=== PATIENT | female | born 1945 | race Asian ===

== ENCOUNTER 2022-06-08 12:50 | Inpatient (IN) | payer OTHER ==
[~2022-06-08] VITALS: Ht 152.4 cm; Wt 67.7 kg
--- NOTE | 2022-06-08 12:55 | NUR ---
Patient to ER bed 04 to gown for evaluation. Side rails up.
[2022-06-08 12:56] VITALS: BP_SYST 148
--- NOTE | 2022-06-08 13:00 | NUR ---
Pt brought by JOEL, Dillon&Ox4, pt presents to ER with syncopal episode at home, bump on the back of the head noted,denies taking blood thinners,pt was assisted to the bed, pt c/o headache 4/10, skin pink and warm, respirations even and unlabored, cap refill <3, will cont to monitor.
--- NOTE | 2022-06-08 13:11 | NUR ---
SPOKE WITH PT AND PTS DAUGHTER, PT STATES SHE GOT OUT OF BED AND BECAME DIZZY, FELL AND HIT TOP OF HEAD ON HARDWOOD FLOORS. +SYNCOPAL EPISODE. PT STATES THAT SHE THEN CALLED HER DAUGHTER WHO WAS IN ANOTHER ROOM, DAUGHTER THEN CALLED 911. PT IS ALERT AND ORIENTED X3, STATES SHE HAS NOT EATEN TODAY, DID NOT TAKE HER MEDS EITHER.
--- NOTE | 2022-06-08 13:15 | NUR ---
LAB AT BEDSIDE FOR BLOOD DRAW
[2022-06-08 13:29] LABS: BASOPHILS % (AUTO) 0.2 % (0.0-2.0); EOSINOPHILS # (AUTO) 0.3 K/uL (0.0-0.4); EOSINOPHILS % (AUTO) 5.8 % (0.0-4.0); HEMATOCRIT 40.1 % (36-48); HEMOGLOBIN 13.5 g/dL (12.0-16.0); LYMPHOCYTES # (AUTO) 1.1 K/uL (1.0-5.5); LYMPHOCYTES % (AUTO) 20.9 % (20.5-51.5); MEAN CORPUSCULAR HEMOGLOBIN 30 pg (27-31); MEAN CORPUSCULAR HGB CONC 34 % (32-36); MEAN CORPUSCULAR VOLUME 90 fL (79.0-98.0); MONOCYTES # (AUTO) 0.6 K/uL (0.0-1.0); MONOCYTES % (AUTO) 11.4 % (1.7-9.3); NEUTROPHILS # (AUTO) 3.2 K/uL (1.8-7.7); NEUTROPHILS % (AUTO) 61.7 % (40.0-70.0); PLATELET COUNT (AUTO) 301 K/uL (130-430); RED BLOOD CELL COUNT(AUTO) 4.45 MIL/uL (4.2-6.2); RED CELL DISTRIBUTION WIDTH 13.5 % (9.0-15.0); WHITE BLOOD COUNT (AUTO) 5.3 K/uL (4.8-10.8)
[2022-06-08 13:53] LABS: BILIRUBIN,URINE NEGATIVE (NEGATIVE); BLOOD, URINE NEGATIVE (NEGATIVE); CLARITY/URINE CLEAR (CLEAR); COLOR,URINE YELLOW (YELLOW); GLUCOSE,URINE TRACE (NEGATIVE); KETONES,URINE NEGATIVE (NEGATIVE); LEUKOCYTE ESTERASE ,URINE NEGATIVE (NEGATIVE); NITRITE, URINE NEGATIVE (NEGATIVE); PROTEIN URINE NEGATIVE (NEGATIVE); UROBILINOGEN,URINE 0.2 (0.2-1.0)
[2022-06-08 14:00] LABS: ANION GAP 10 (5-15); CHLORIDE 104 mmol/L (98-107); CREATININE 1.02 mg/dL (0.55-1.30); GLUCOSE 209 mg/dL (70-99); UREA NITROGEN, BLOOD 17 mg/dL (8-21)
[2022-06-08 14:08] LABS: ALANINE AMINOTRANSFERASE 24 U/L (12-78); ALBUMIN 3.2 g/dL (3.4-4.8); ASPARTATE AMINOTRANSFERASE 19 U/L (10-37); TOTAL BILIRUBIN 0.5 mg/dL (0.0-1.0)
[2022-06-08] MEDS ORDERED: METO50TA7 PO (14:27)
[2022-06-08] MEDS ORDERED: ROSU40TA PO (14:27)
[2022-06-08] MEDS ORDERED: ZETIA PO (14:27)
[2022-06-08] MEDS ORDERED: CALC-940 PO (14:27)
[2022-06-08] MEDS ORDERED: ASA81 PO (14:27)
[2022-06-08] MEDS ORDERED: ONDA-8 TL (14:27)
[2022-06-08] MEDS ORDERED: ALLERTEC PO (14:27)
[2022-06-08] MEDS ORDERED: ALLO100T PO (14:27)
[2022-06-08] MEDS ORDERED: LOSA50TA3 PO (14:27)
--- NOTE | 2022-06-08 14:27 | NUR ---
Medication reconciliation completed with information provided by FAMILY BROU[facility]HT IN. Any prior medication reconciliation on file was reviewed and corrected.
--- NOTE | 2022-06-08 15:10 | NUR ---
RESTING QUIETLY, NO CHANGES
--- NOTE | 2022-06-08 17:20 | NUR ---
PT AND FAMILY AWARE OF POSS ADMISSION. AWAITING ORDERS
--- NOTE | 2022-06-08 18:20 | NUR ---
Admit bed requested Patient will be admitted to care of . Admitted to TELE unit. Diagnosis [facility] Inpatient (Yes or No) Y Observation (Yes or No) N Orientation concerns or request close to nursing station (Yes or No) N Covid Status PENDING On vent or bipap N Isolation requirements N Needs a sitter N From Home (Yes or if No enter name of facility) Y Requires Dialysis (Yes or No) N Med Rec Completed (Yes of No) YES
--- NOTE | 2022-06-08 19:17 | NUR ---
REPORT GIVEN TO LIZETT, WILL ASSUME CARE
--- NOTE | 2022-06-08 20:22 | NUR ---
Patient will be admitted to care of Dr. Mohr. Admitted to tele unit. Will go to room 113. Belongings list completed. Complete and up to date summary report printed. SBAR report given at bedside to SILKE Meneses with opportunity for questions. (Assisting primary nurse. Gave report for SILKE Tena.)
[2022-06-08 21:26] VITALS: BP_SYST 124
[2022-06-08] MEDS ORDERED: ONDANSETRON HCL 4 MG/2 ML VIAL IM PRN (22:15)
[2022-06-08] MEDS: ACETAMINOPHEN 325 MG TABLET PO PRN (22:32)
[2022-06-09] VITALS (8 sets, daily range): BP systolic 124–188
--- NOTE | 2022-06-09 05:04 | NUR ---
CONSULTATION PAGED/CALLED Reason for Consultation: [facility] Person Who was Notified: VIA TEXT Consulting Physician: Director [employer] Specialty: CARDIO Ordering Physician:
--- NOTE | 2022-06-09 07:50 | NUR ---
Patient stable; eating breakfast at this time with no complaint of pain. Daughter, Melissa Jeff at bedside.
--- NOTE | 2022-06-09 07:55 | NUR ---
Paged Dr. Mohr regarding review of med rec. BP 188/97. Patient stable at this time.
--- NOTE | 2022-06-09 07:59 | NUR ---
MD AURELIO CAO FOR ELEVATED BP SPOKE WITH MELVIN AT THE EXCHANGE
--- NOTE | 2022-06-09 08:50 | NUR ---
Patient ambulated to bathroom with standby assist from daughter. Patient ambulated back to bed; stable at this time.
--- NOTE | 2022-06-09 08:50 | NUR ---
Second page to Dr. Mohr regarding med rec and elevated BP.
--- NOTE | 2022-06-09 09:47 | NUR ---
Patient ambulated with standby assist from daughter to bathroom and back to bed.
[2022-06-09] MEDS: ACETAMINOPHEN 325 MG TABLET PO PRN (10:10)
--- NOTE | 2022-06-09 10:10 | NUR ---
Still awaiting call back from Dr. Mohr or Dr. Stephen. Rechecked blood pressure: 133/92. Patient medicated for headache; stable with daughter at bedside.
--- NOTE | 2022-06-09 10:53 | NUR ---
Patient resting comfortably in bed with 2D echo in progress and Liane (tech) at bedside. Patient stable.
--- NOTE | 2022-06-09 15:30 | NUR ---
Patient resting in bed with Dr. Craft and daughter at bedside.
[2022-06-09] MEDS ORDERED: ONDANSETRON 4 MG ODT TAB TL PRN (16:00)
[2022-06-09] MEDS ORDERED: ALLERTEC PO SCH (16:00)
[2022-06-09] MEDS ORDERED: LOSARTAN POTASSIUM 50 MG TABLET (COZAAR) PO ONE (16:00)
[2022-06-09] MEDS ORDERED: CALCIUM CARBONATE 300 MG PO SCH (16:00)
[2022-06-09] MEDS ORDERED: METOPROLOL SUCCINATE 50 MG TAB.SR.24H (TOPROL XL) PO ONE (16:00)
[2022-06-09] MEDS ORDERED: ROSUVASTATIN CALCIUM 5 MG/TAB (CRESTOR) PO SCH (16:00)
[2022-06-09] MEDS ORDERED: ALLOPURINOL 100 MG TABLET (ZYLOPRIM) PO ONE (16:00)
[2022-06-09] MEDS ORDERED: ASPIRIN 81 MG TAB.CHEW PO ONE (16:00)
--- NOTE | 2022-06-09 16:05 | NUR ---
Orthostatic blood pressure: supine: 97.5, 72, 18, 159/93, 98% sittin.5, 76, 18, 160/93, 95% standin.5, 84, 19, 155/99, 94%
--- NOTE | 2022-06-09 16:15 | NUR ---
Scheduled medications given per order. Patient stable with daughter at bedside.
--- NOTE | 2022-06-09 16:23 | NUR ---
Patient ambulated to bathroom with walker assist and standby assist from daughter.
--- NOTE | 2022-06-09 18:45 | NUR ---
Patient eating dinner with daughter at bedside. Patient stable throughout shift.
--- NOTE | 2022-06-09 19:25 | NUR ---
CHANGE OF SHIFT: endorsed by day shift. EGD was not done today, will checke whymary kuo not done. no distress. safety precautions observed. call light within reach. Addendum: 06/09/22 at 2256 by Shante Mercado RN wrong pt.
--- NOTE | 2022-06-09 19:30 | NUR ---
CHANGE OF SHIFT; pt. admitted today secondary to a fall. DX Syncope. pt. daughter at bedside. instructed to use call ligth when getting out of bed. no complaints. call light within reach. bed alarm on..
--- NOTE | 2022-06-09 20:30 | NUR ---
NOTES: pt. awake,alert. IVF infusing via left arm. noted weakness on bilateral lower extrmities, left leg contracted and some discoloration. incontinent of urine, moni pad changed. sacral wound dressing intact. on diagnostic cardiac sonographer and shows sinus rhythm. repositioned and turn to sides. HOB slighty elevated, on room air. bed alarm . call light within reach. Addendum: 06/09/22 at 2246 by Shnate Mercado RN wrong pt. Addendum: 06/10/22 at 0310 by Shante Mercado RN wrong pt.
[2022-06-09] MEDS: ALLOPURINOL 100 MG TABLET (ZYLOPRIM) PO SCH (20:47)
[2022-06-09] MEDS: METOPROLOL SUCCINATE 50 MG TAB.SR.24H (TOPROL XL) PO SCH (20:47)
--- NOTE | 2022-06-09 20:50 | NUR ---
NOTES: due medications given, VS checked earlier. needs attended. bed alarm on.
--- NOTE | 2022-06-09 21:20 | NUR ---
NOTES: pt. assisted to the restroom with a walker and voided.
--- NOTE | 2022-06-09 21:30 | NUR ---
NOTES: found out from charge nurse.that EGD is schedule tomorrow. pt. fed with apple sauce and jello since he is hungry and tolerated well. needs attended. Addendum: 06/09/22 at 2246 by Shante Mercado RN wrong pt.
--- NOTE | 2022-06-09 22:30 | NUR ---
NOTES: pt. sleeping when checked. bed alarm on/
[2022-06-10] VITALS (7 sets, daily range): BP systolic 96–171
--- NOTE | 2022-06-10 00:10 | NUR ---
NOTES: pt. sleeping, no further complaints. fall risk precautions. call light at bedside./
--- NOTE | 2022-06-10 02:15 | NUR ---
NOTES: pt. awakened, ambulated to the restroom with walker. rechecked BP systolic @ 170. no chest pain. cardiac pattern unchanged.
--- NOTE | 2022-06-10 04:56 | NUR ---
NOTES: pt.awakenedand ambulated to the restroom with walker. no complaints manifested. bed alarm on.
[2022-06-10] MEDS ORDERED: hydrALAZINE HCL 20 MG/ML VIAL IVP PRN ×2 (06:00→10:00)
--- NOTE | 2022-06-10 06:00 | NUR ---
NOTES: called Dr. Stephen, language and literature division chair for Dr. Mohr for elevated SBP 170 HR 62 with order and noted. informed pt.
--- NOTE | 2022-06-10 06:54 | NUR ---
CLOSING NOTES; ambulated to the restroom with walker. will IV Hydralazine for SBP 170. back to bed. will endorse to incoming shift. for further care. call at bedside.
[2022-06-10] MEDS ORDERED: LOSARTAN POTASSIUM 50 MG TABLET (COZAAR) PO SCH (09:00)
[2022-06-10] MEDS ORDERED: ASPIRIN 81 MG TAB.CHEW PO SCH (09:00)
[2022-06-10] MEDS: ALLOPURINOL 100 MG TABLET (ZYLOPRIM) PO SCH (10:02)
[2022-06-10] MEDS ORDERED: CALCIUM CARBONATE 500 MG/ TAB.CHEW PO PRN (10:30)
--- NOTE | 2022-06-10 11:43 | NUR ---
Positive for MRSA of the nares. Patient made aware. MD notified . Patient's afebrile, no c/o pain or discomfort. Placed patient on contact isolation.
[2022-06-10] MEDS: METOPROLOL SUCCINATE 50 MG TAB.SR.24H (TOPROL XL) PO SCH (15:29)
[2022-06-10 15:42] LABS: ANION GAP 11 (5-15); CHLORIDE 103 mmol/L (98-107); CREATININE 1.54 mg/dL (0.55-1.30); GLUCOSE 129 mg/dL (70-99); UREA NITROGEN, BLOOD 25 mg/dL (8-21)
--- NOTE | 2022-06-10 18:59 | NUR ---
D/C Patient home via personal vehicle, picked up by daughter. Patient given medication reconciliation form and D/C instructions. Exit Care provided. Patient verbalized understanding. MD discussed with patient the results and treatment provided. Ambulatory with steady gait for discharge to home. Patient in stable condition, ID band removed. IV catheter removed, intact and dressing applied, no active bleeding. Patient educated on safety, fall precaution, and pain management. All belongings sent with patient. VSS. Denies any pain or discomfort.
[2022-06-10] MEDS ORDERED: ATORVASTATIN 20 MG TABLET PO SCH (21:00)
[2022-06-11] MEDS ORDERED: LORATADINE 10 MG TABLET PO SCH (09:00)
== END 2022-06-10 19:05 | disposition home or self-care (01) | DRG 304 ==
LOC: SED 12:50 → STU 20:16 → SMU 20:21 → STU 21:12
PROVIDERS: ADMIT Specialist; ATTEND Specialist
DX: I16.0 Hypertensive urgency (principal); N17.0 Acute kidney failure with tubular necrosis; I24.8 Other forms of acute ischemic heart disease; S09.90XA Unspecified injury of head, initial encounter; I10 Essential (primary) hypertension; E78.5 Hyperlipidemia, unspecified; W18.39XA Other fall on same level, initial encounter; Z20.822 Contact with and (suspected) exposure to COVID-19; E11.9 Type 2 diabetes mellitus without complications; Z90.710 Acquired absence of both cervix and uterus; Z79.82 Long term (current) use of aspirin; Z79.899 Other long term (current) drug therapy; Y93.89 Activity, other specified; Y92.89 Other specified places as the place of occurrence of the external cause; Y99.8 Other external cause status
CPT/HCPCS: 36415; 70450-TC; 71045; 72125-TC; 76376; 80048; 80053; 81003; 83880; 84484; 85025; 87081; 93005; 93306; 93880; 99285; G0378; J0360

== ENCOUNTER 2023-04-11 10:43 | Inpatient (IN) | payer OTHER, MEDICAID ==
[~2023-04-11] VITALS: Ht 152.4 cm; Wt 65.8 kg
[~2023-04-11 10:43] MED LIST: ALEN10TA25 PO; ALLERTEC PO; ALLO100T PO; ASA81 PO; CALC-940 PO; ICOS1CAP PO; LOSA-412 PO; MAGN400T10 PO; MONT-47 PO; NITSL SL; OMEP20CA15 PO; ONDA-8 TL; ROSU40TA PO; ZETIA PO
[2023-04-11 10:57] VITALS: BP_SYST 130; PULSE 90; RESP 18; TEMP 98.1; O2SAT 95
[2023-04-11 11:19] LABS: BASOPHILS # (AUTO) 0.1 K/uL (0.0-0.2); BASOPHILS % (AUTO) 1.2 % (0.0-2.0); EOSINOPHILS # (AUTO) 0.4 K/uL (0.0-0.4); EOSINOPHILS % (AUTO) 5.6 % (0.0-4.0); HEMATOCRIT 42.9 % (36-48); HEMOGLOBIN 14.1 g/dL (12.0-16.0); LYMPHOCYTES # (AUTO) 0.9 K/uL (1.0-5.5); LYMPHOCYTES % (AUTO) 14.4 % (20.5-51.5); MEAN CORPUSCULAR HEMOGLOBIN 30 pg (27-31); MEAN CORPUSCULAR HGB CONC 33 % (32-36); MEAN CORPUSCULAR VOLUME 91 fL (79.0-98.0); MONOCYTES # (AUTO) 0.7 K/uL (0.0-1.0); MONOCYTES % (AUTO) 10.3 % (1.7-9.3); NEUTROPHILS # (AUTO) 4.5 K/uL (1.8-7.7); NEUTROPHILS % (AUTO) 68.5 % (40.0-70.0); PLATELET COUNT (AUTO) 327 K/uL (130-430); RED BLOOD CELL COUNT(AUTO) 4.74 MIL/uL (4.2-6.2); RED CELL DISTRIBUTION WIDTH 13.5 % (9.0-15.0); WHITE BLOOD COUNT (AUTO) 6.6 K/uL (4.8-10.8)
[2023-04-11 11:24] LABS: ANION GAP 7 (5-15); CALCIUM 9.7 mg/dL (8.4-11.0); CARBON DIOXIDE 30 mmol/L (23-29); CHLORIDE 103 mmol/L (98-107); CREATININE 1.34 mg/dL (0.55-1.30); GLUCOSE 175 mg/dL (74-106); POTASSIUM 3.8 mmol/L (3.5-5.1); SODIUM SERUM 140 mmol/L (136-145); UREA NITROGEN, BLOOD 13 mg/dL (8-21)
[2023-04-11 11:42] LABS: ALANINE AMINOTRANSFERASE 31 U/L (12-78); ALBUMIN 3.7 g/dL (3.4-4.8); ASPARTATE AMINOTRANSFERASE 27 U/L (10-37); BILIRUBIN,DIRECT 0.2 mg/dL (0.0-0.3); TOTAL BILIRUBIN 0.7 mg/dL (0.0-1.0); TOTAL PROTEIN, SERUM 8.5 g/dL (6.4-8.3)
[2023-04-11] MEDS ORDERED: ASPIRIN 81 MG TABLET(ECOTRIN) PO ONE (12:00)
[2023-04-11] MEDS ORDERED: METO-540 PO (12:24)
[2023-04-11] MEDS ORDERED: EZET10TA PO (12:24)
[2023-04-11] MEDS ORDERED: MONT-47 PO (12:24)
[2023-04-11] MEDS ORDERED: NITROGLYCERIN 0.4 MG TAB.SUBL SL PRN (12:45)
[2023-04-11] MEDS ORDERED: IBUPROFEN 600 MG TABLET PO ONE (12:45)
[2023-04-11] MEDS ORDERED: ALLOPURINOL 100 MG TABLET (ZYLOPRIM) PO SCH (12:45)
[2023-04-11 13:19] LABS: CHOLESTEROL 115 mg/dL (<200); HDL CHOLESTEROL 55 mg/dL (>55); TRIGLYCERIDES 123 mg/dL (30-150)
[2023-04-11] MEDS ORDERED: ADENOSINE 6MG/2ML VIAL ONE ×3 (13:29→14:07)
[2023-04-11] MEDS ORDERED: ADENOSINE 6MG/2ML VIAL IVP ONE (13:45)
[2023-04-11] MEDS ORDERED: ATENOLOL 50 MG TABLET (TENORMIN) ONE (14:09)
[2023-04-11] MEDS ORDERED: AMIODARONE HCL 450 MG in D5W 241 ML IV SCH (14:15)
[2023-04-11] MEDS ORDERED: ATENOLOL 50 MG TABLET (TENORMIN) PO ONE (14:15)
[2023-04-11] MEDS ORDERED: METOPROLOL TARTRATE 5 MG/5 ML VIAL ONE (14:27)
[2023-04-11] MEDS ORDERED: EZETIMIBE 10 MG TABLET PO ONE (14:45)
[2023-04-11] MEDS ORDERED: METO25TA6 PO (14:47)
[2023-04-11] MEDS ORDERED: METOPROLOL TARTRATE 25 MG TABLET PO ONE (15:00)
[2023-04-11 18:33] LABS: BILIRUBIN,URINE NEGATIVE (NEGATIVE); CLARITY/URINE CLEAR (CLEAR); COLOR,URINE YELLOW (YELLOW); GLUCOSE,URINE NEGATIVE (NEGATIVE); KETONES,URINE NEGATIVE (NEGATIVE); LEUKOCYTE ESTERASE ,URINE 1+ (NEGATIVE); NITRITE, URINE NEGATIVE (NEGATIVE); PH,URINE 7.5 (5.0-8.0); PROTEIN URINE TRACE (NEGATIVE); UROBILINOGEN,URINE 0.2 (0.2-1.0)
[2023-04-11 18:46] LABS: BLOOD, URINE TRACE (NEGATIVE)
[2023-04-11 18:49] LABS: BACTERIA,URINE MODERATE /HPF (None Seen); WBC,URINE 20-50 /HPF (0-3)
[2023-04-11] MEDS ORDERED: METOPROLOL TARTRATE 25 MG TABLET PO SCH (21:00)
[2023-04-11] MEDS: ALLOPURINOL 100 MG TABLET (ZYLOPRIM) PO SCH (22:16)
[2023-04-12] VITALS (16 sets, daily range): BP systolic 95–162; PULSE 47–52; RESP 17–26; TEMP 97.7–98.9; O2SAT 2–100
[2023-04-12 06:06] LABS: BASOPHILS # (AUTO) 0.1 K/uL (0.0-0.2); BASOPHILS % (AUTO) 0.9 % (0.0-2.0); EOSINOPHILS # (AUTO) 0.4 K/uL (0.0-0.4); EOSINOPHILS % (AUTO) 4.8 % (0.0-4.0); HEMATOCRIT 39.2 % (36-48); HEMOGLOBIN 12.5 g/dL (12.0-16.0); LYMPHOCYTES # (AUTO) 1.2 K/uL (1.0-5.5); LYMPHOCYTES % (AUTO) 14.4 % (20.5-51.5); MEAN CORPUSCULAR HEMOGLOBIN 29 pg (27-31); MEAN CORPUSCULAR HGB CONC 32 % (32-36); MEAN CORPUSCULAR VOLUME 92 fL (79.0-98.0); MONOCYTES # (AUTO) 0.8 K/uL (0.0-1.0); MONOCYTES % (AUTO) 10.1 % (1.7-9.3); NEUTROPHILS # (AUTO) 5.8 K/uL (1.8-7.7); NEUTROPHILS % (AUTO) 69.8 % (40.0-70.0); PLATELET COUNT (AUTO) 262 K/uL (130-430); RED BLOOD CELL COUNT(AUTO) 4.26 MIL/uL (4.2-6.2); RED CELL DISTRIBUTION WIDTH 13.7 % (9.0-15.0); WHITE BLOOD COUNT (AUTO) 8.2 K/uL (4.8-10.8)
[2023-04-12 08:00] LABS: ANION GAP 11 (5-15); CARBON DIOXIDE 23 mmol/L (23-29); CHLORIDE 106 mmol/L (98-107); CREATININE 1.27 mg/dL (0.55-1.30); GLUCOSE 149 mg/dL (74-106); POTASSIUM 4.4 mmol/L (3.5-5.1); SODIUM SERUM 140 mmol/L (136-145); UREA NITROGEN, BLOOD 22 mg/dL (8-21)
[2023-04-12] MEDS: ALLOPURINOL 100 MG TABLET (ZYLOPRIM) PO SCH ×2 (08:35→21:46)
[2023-04-12] MEDS: EZETIMIBE 10 MG TABLET PO SCH (08:35)
[2023-04-12] MEDS: ATORVASTATIN 20 MG TABLET PO SCH (08:35)
[2023-04-12] MEDS: MAGNESIUM OXIDE 400 MG TABLET PO SCH (08:35)
[2023-04-12] MEDS: PANTOPRAZOLE SODIUM 40 MG TAB PO SCH (08:39)
[2023-04-12] MEDS ORDERED: LOSARTAN POTASSIUM 25 MG TABLET PO SCH (09:00)
[2023-04-12] MEDS ORDERED: METOPROLOL TARTRATE 25 MG TABLET PO SCH (09:00)
[2023-04-12] MEDS ORDERED: METOPROLOL SUCCINATE 25 MG TAB.SR.24H (TOPROL XL) PO SCH (09:00)
[2023-04-12] MEDS ORDERED: ROSUVASTATIN CALCIUM 5 MG/TAB (CRESTOR) PO SCH (09:00)
[2023-04-12] MEDS ORDERED: OMEPRAZOLE Non-Formulary 20 MG CAPSULE.DR PO SCH (09:00)
[2023-04-12] MEDS: MONTELUKAST 10 MG TABLET PO SCH (09:21)
[2023-04-12] MEDS: ACETAMINOPHEN 325 MG TABLET PO PRN ×2 (09:21→16:11)
[2023-04-12] MEDS ORDERED: AMIODARONE HCL 200 MG TABLET PO ONE ×2 (09:30→12:45)
[2023-04-12] MEDS ORDERED: FUROSEMIDE 20 MG/2 ML VIAL IVP ONE (09:30)
[2023-04-12 15:00] LABS: BASOPHILS # (AUTO) 0.1 K/uL (0.0-0.2); BASOPHILS % (AUTO) 0.9 % (0.0-2.0); EOSINOPHILS # (AUTO) 0.3 K/uL (0.0-0.4); EOSINOPHILS % (AUTO) 5.7 % (0.0-4.0); HEMOGLOBIN 12.6 g/dL (12.0-16.0); LYMPHOCYTES # (AUTO) 0.8 K/uL (1.0-5.5); MEAN CORPUSCULAR HEMOGLOBIN 30 pg (27-31); MEAN CORPUSCULAR HGB CONC 33 % (32-36); MEAN CORPUSCULAR VOLUME 92 fL (79.0-98.0); MONOCYTES # (AUTO) 0.7 K/uL (0.0-1.0); NEUTROPHILS # (AUTO) 4.1 K/uL (1.8-7.7); NEUTROPHILS % (AUTO) 68.4 % (40.0-70.0); PLATELET COUNT (AUTO) 284 K/uL (130-430); RED BLOOD CELL COUNT(AUTO) 4.14 MIL/uL (4.2-6.2); RED CELL DISTRIBUTION WIDTH 13.6 % (9.0-15.0); WHITE BLOOD COUNT (AUTO) 5.9 K/uL (4.8-10.8)
[2023-04-13] VITALS: BP_SYST 158; PULSE 52; RESP 17; TEMP 97.5; O2SAT 97
[2023-04-13 05:24] LABS: BASOPHILS % (AUTO) 0.8 % (0.0-2.0); EOSINOPHILS # (AUTO) 0.3 K/uL (0.0-0.4); EOSINOPHILS % (AUTO) 5.6 % (0.0-4.0); HEMATOCRIT 40.3 % (36-48); LYMPHOCYTES % (AUTO) 17.6 % (20.5-51.5); MEAN CORPUSCULAR HEMOGLOBIN 30 pg (27-31); MEAN CORPUSCULAR HGB CONC 32 % (32-36); MEAN CORPUSCULAR VOLUME 93 fL (79.0-98.0); MONOCYTES # (AUTO) 0.6 K/uL (0.0-1.0); MONOCYTES % (AUTO) 11.5 % (1.7-9.3); NEUTROPHILS # (AUTO) 3.6 K/uL (1.8-7.7); NEUTROPHILS % (AUTO) 64.5 % (40.0-70.0); PLATELET COUNT (AUTO) 285 K/uL (130-430); RED BLOOD CELL COUNT(AUTO) 4.34 MIL/uL (4.2-6.2); RED CELL DISTRIBUTION WIDTH 13.6 % (9.0-15.0); WHITE BLOOD COUNT (AUTO) 5.6 K/uL (4.8-10.8)
[2023-04-13 05:34] LABS: ANION GAP 4 (5-15); CALCIUM 8.9 mg/dL (8.4-11.0); CARBON DIOXIDE 31 mmol/L (23-29); CHLORIDE 106 mmol/L (98-107); CREATININE 1.25 mg/dL (0.55-1.30); GLUCOSE 156 mg/dL (74-106); POTASSIUM 3.2 mmol/L (3.5-5.1); SODIUM SERUM 141 mmol/L (136-145); UREA NITROGEN, BLOOD 20 mg/dL (8-21)
[2023-04-13 08:28] VITALS: BP_SYST 164; PULSE 53; RESP 15; TEMP 97.9; O2SAT 97
[2023-04-13] MEDS ORDERED: POTASSIUM CHLORIDE 20 MEQ/PKT PACKET PO ONE (08:45)
[2023-04-13] MEDS ORDERED: FUROSEMIDE 20 MG TABLET PO SCH (09:00)
[2023-04-13] MEDS ORDERED: AMIODARONE HCL 200 MG TABLET PO SCH (09:00)
[2023-04-13] MEDS ORDERED: FUROSEMIDE 20 MG/2 ML VIAL IVP SCH (09:00)
[2023-04-13] MEDS ORDERED: LOSARTAN POTASSIUM 25 MG TABLET PO SCH (09:00)
[2023-04-13] MEDS: MAGNESIUM OXIDE 400 MG TABLET PO SCH (10:26)
[2023-04-13] MEDS: MONTELUKAST 10 MG TABLET PO SCH (10:27)
[2023-04-13] MEDS: ATORVASTATIN 20 MG TABLET PO SCH (10:27)
[2023-04-13] MEDS: PANTOPRAZOLE SODIUM 40 MG TAB PO SCH (10:27)
[2023-04-13] MEDS: ALLOPURINOL 100 MG TABLET (ZYLOPRIM) PO SCH (10:27)
[2023-04-13] MEDS: EZETIMIBE 10 MG TABLET PO SCH (10:27)
[2023-04-13] MEDS ORDERED: AMIO200T68 PO (11:20)
[2023-04-13 13:30] VITALS: BP_SYST 95; PULSE 71; RESP 16; TEMP 98.1; O2SAT 97
[2023-04-14] MEDS ORDERED: POTASSIUM CHLORIDE 20 MEQ/PKT PACKET PO SCH (09:00)
== END 2023-04-13 14:50 | disposition home health service (06) | DRG 309 ==
LOC: SED 10:43 → STU 12:13 → SIC 23:11 → STU 04-12 18:44
PROVIDERS: ADMIT Specialist; ATTEND Specialist
DX: I47.10 Supraventricular tachycardia, unspecified (principal); N17.9 Acute kidney failure, unspecified; N39.0 Urinary tract infection, site not specified; I49.5 Sick sinus syndrome; E78.5 Hyperlipidemia, unspecified; M10.9 Gout, unspecified; I25.10 Atherosclerotic heart disease of native coronary artery without angina pectoris; K21.9 Gastro-esophageal reflux disease without esophagitis; M81.0 Age-related osteoporosis without current pathological fracture; I10 Essential (primary) hypertension
CPT/HCPCS: 36415; 80048; 80061; 80076; 81000; 81001; 81015; 83880; 84484; 85025; 87086; 93005; 93306; 96365; 99291; G0378; J0153; J1940; J3490; J7060